=== PATIENT | female | born 1965 | race Caucasian/White ===

== ENCOUNTER → 2019-06-27 | Outpatient (CLI) | payer SELFPAY | PROVIDERS: Family Provider Family Medicine; Visit Provider Podiatrist Foot & Ankle Surgery | DX: S86.012A Strain of left Achilles tendon, initial encounter (principal); X58.XXXA Exposure to other specified factors, initial encounter; R60.9 Edema, unspecified; M67.874 Other specified disorders of tendon, left ankle and foot | CPT/HCPCS: 73721 ==

== ENCOUNTER 2019-07-05 16:37 | Outpatient (CLI) | payer BC, SELFPAY | END 2019-07-05 16:38 | disposition home or self-care (01) | LOC: SPT 16:37 | PROVIDERS: Family Provider Family Medicine; PCP Nurse Practitioner Family; Visit Provider Podiatrist Foot & Ankle Surgery | DX: S86.012D Strain of left Achilles tendon, subsequent encounter (principal); X58.XXXD Exposure to other specified factors, subsequent encounter | CPT/HCPCS: L4361 ==

== ENCOUNTER → 2020-05-01 13:52 | Outpatient (BNVA) | payer BC, SELFPAY | PROVIDERS: Family Provider Family Medicine; PCP Nurse Practitioner Family; Visit Provider Specialist | DX: M25.561 Pain in right knee (principal); M94.261 Chondromalacia, right knee; M12.861 Other specific arthropathies, not elsewhere classified, right knee | CPT/HCPCS: 73560; 73565 ==

== ENCOUNTER 2020-05-28 09:10 | Outpatient (CLI) | payer BC, SELFPAY ==
--- NOTE | 2020-05-28 09:22 | ECG_ITS ---
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 Interpretive Statements NAME OF STUDY: LEXISCAN SESTAMIBI STRESS TEST INDICATION: Chest Pain PROCEDURE: At the baseline, the blood pressure was 113/89 mmHg with a heart rate of 61 bpm. The electrocardiogram showed normal sinus rhythm. Interventricular conduction delay. ST-T wave changes in inferolateral leads. The Lexiscan was infused over a period of 20 seconds. A total of 0.4 milligrams of Lexiscan was infused. The stress phase was continued for a total of 5 minutes. Heart rate at the end of the stress phase was 73 bpm with a blood pressure of 122/67 mm. The EKG at the peak infusion revealed [sinus rhythm with no new ST-T wave changes. Sestamibi was injected 20 seconds after the Lexiscan infusion. Blood pressure at the end of the recovery phase was 122/77 mmHg with a heart rate of 81 beats per minute. CONCLUSION: 1. Equvivocal EKG response to LexiScan infusion given baseline ST-T wave changes. 2. No LexiScan induced chest pain or cardiac arrhythmia. 3. Normal blood pressure and heart rate response. 4. Sestamibi/sestamibi perfusion scan pending; see separate report. Electronically Signed On 05-29-2020 6:45:11 PRODUCTION POSTING CLERK by Karen Cutler M.D. [id number]
--- NOTE | 2020-05-28 09:23 | NMCV_ITS ---
NM víctor perf SPECT r/s* [id number] Katherine Dietrich Age: 55 Gender: F : 1965 Exam Date: 05/28/2020 10:24 Ordering Phys: Tete Chamorro MD ([email or web address]) Technologist: MONISHA Sotelo Exam Location: [facility] Indications: CHEST PAIN STRESS TEST [facility] IMAGE PROTOCOL Rest/Stress 1 Lexiscan Day Radiopharmaceutical Dose (mCi) Administration Site Administered by Rest: Tc-99m 11.0 IV MONISHA Page Sestamibi Stress:Tc-99m 33.0 IV MONISHA Page Sestamibi Rest: 28-May-2020 60 Discovery 630 Stress: 28-May-2020 30 Discovery 630 0.4mg Lexiscan. Images obtained in supine and prone position. SPECT RESULTS Technical Quality: Good Raw Data Analysis: Breast attenuation Image Corrections: No attenuation or motion correction applied Summed Stress Score: 3 Summed Rest Score: 2 Summed Difference Score: 3 PERFUSION FINDINGS Small area of slightly decreased tracer uptake was noted in the mid and apical inferior and mid inferolateral region. Subtle area of reversibility was noted in this region. FUNCTIONAL RESULTS (calculated via Gated SPECT) Stress Image LV EF (%): 77 Stress EDV (mL):126 TID: 0.92 Stress ESV (mL):29 FUNCTIONAL FINDINGS: Segmental wall motion analysis revealing no gross wall motion normalities. IMPRESSIONS 1. Myocardial perfusion imaging revealing a small area of slightly decreased tracer uptake in the inferior and inferolateral region, with a subtle area of reversibility suggestive of myocardial scarring with a very small area of krishan- infarction ischemia in the distribution of the right coronary artery. 2. Normal LV ejection fraction 77%. 3. LV wall motion analysis revealing no gross wall motion normalities. 4. Normal LV volume. No similar previous studies are available for comparison Dr Tete Chamorro MD FAC (Electronically Signed) Final Date: 29 May 2020 10:18 S
[2020-05-28 09:33] VITALS: BMI 42.5
[2020-05-28] MEDS: regadenoson 0.4 Mg/5 ml Syringe IVP (11:37)
[2020-05-28 11:58] VITALS: BP 122/77; PULSE 69
== END 2020-05-28 09:11 | disposition home or self-care (01) ==
PROVIDERS: PCP Nurse Practitioner Family; Visit Provider Internal Medicine Cardiovascular Disease
DX: R07.9 Chest pain, unspecified (principal)
CPT/HCPCS: 78452; 93017; A9500; J2785

== ENCOUNTER 2020-07-30 20:31 | Observation (INO) | payer OTHER, SELFPAY ==
[2020-07-30 20:43] VITALS: BP 129/74; PULSE 70; RESP 14; TEMP 36.6; O2SAT 96; BMI 43.2
--- NOTE | 2020-07-30 21:53 | ECG_ITS ---
[facility] Test Date: 2020-07-30 Pat Name: Katherine Dietrich Department: Room: Gender: Female Panel Gluer: NOA : 1965 Requested By: Saundra Almazan Order Number: [id number] Carmela MD: Tete Chamorro M.D. Measurements Intervals [place] Rate: 69 P: 42 [place]: 126 QRS: -31 QRSD: 130 T: 30 QT: 385 QTc: 415 Interpretive Statements SINUS RHYTHM MARKED LEFT AXIS DEVIATION [QRS AXIS < -30] LEFT VENTRICULAR HYPERTROPHY AND ST-T CHANGE [VOLTAGE CRITERIA PLUS ST/T ABNORMALITY] PROBABLE LATERAL MYOCARDIAL INFARCTION [35 ms Q WAVE IN I/aVL/V5/V6], PROBABLY OLD No previous ECG available for comparison Electronically Signed On 07-31-2020 19:59:39 CONTRACT ASSOCIATE MANAGER by Tete Chamorro M.D. [id number]
--- NOTE | 2020-07-30 21:53 | XR_ITS ---
WS: [id number] Portable AP upright chest, 07/30/2020 Clinical Data: cp Comparison: None. Findings: No nodules, masses or effusions are seen. The heart is normal. The pulmonary vascularity is not increased. No pneumonia or pneumothorax is seen. XR/XR chest 1V portable [id number] Impression: Negative chest.
--- NOTE | 2020-07-30 22:24 | ED_ITS ---
HPI - Chest Pain General: Chief Complaint: Chest Pain Stated Complaint: CP, DIZZINESS, NAUSEA, H/A Time Seen by Provider: 07/30/20 21:59 Source: patient Mode of arrival: ambulatory Limitations: no limitations History of Present Illness: HPI narrative: 55-year-old female states she has been having chest pain over the last 2 days a got worse today. States pressure type pain that goes down her left arm. Patient states that her pain is currently 2 out of 10. States it is much worse with any activity. She has had some nausea and sweating with it. Associated symptoms: Deny abdominal pain, dyspnea, fever(s), nausea or vomiting Review of Systems Const: Denies: fever(s), chills, body aches or change in appetite Eyes: Denies: blurry vision or eye discomfort ENMT: Denies: throat pain or dental pain Card: Reports: chest pain Resp: Denies: dyspnea GI: Denies: abdominal pain, nausea, vomiting or diarrhea : Denies: dysuria Musc: Denies: neck pain or back pain Skin/Breast: Denies: rash Neuro: Denies: headache(s) Psych: Denies: depression Rian/Lymph: Denies: easy bruising All/Imm: Denies: urticaria PFSH ED PFSH: Medical History (Updated 07/31/20 @ 00:12 by Saundra Almazan MD) Dyslipidemia GERD (gastroesophageal reflux disease) History of CVA (cerebrovascular accident) HTN (hypertension) Surgical History H/O: hysterectomy History of bladder surgery Hx of cholecystectomy Hx of heart artery stent Hx of tonsillectomy Hx of tubal ligation Family History Family/Other Heart disease Glaucoma Stroke Diabetes Denies family history of CAD (coronary artery disease) Clotting disorder Dementia Hyperlipidemia Psychiatric illness Chronic kidney disease (CKD) Suicide Anesthesia complication Bleeding disorder Family history of premature coronary artery disease Lung disease Cancer Hypertension Social History Smoking and tobacco status: never smoked Alcohol intake: never Current occupational status: unemployed Physical Exam Const: COMMON NORMALS: no acute distress, patient oriented x3 and healthy appearing HENMT: COMMON NORMALS: normocephalic and atraumatic HEAD & SCALP: normocephalic and atraumatic Eye: COMMON NORMALS: Equal, round and reactive pupils present and EOMs intact bilaterally PUPIL: Yes Equal, round and reactive pupils present Neck/C-Spine: COMMON NORMALS: full ROM and supple Chest: COMMONS NORMALS: normal inspection of the chest and normal palpation of entire chest wall Resp: COMMON NORMALS: normal respiratory effort, No retractions, No use of accessory muscles and clear to auscultation bilaterally AUSCULTATION: clear to auscultation bilaterally Cardio: COMMON NORMALS: regular rate, regular rhythm and No murmurs present (Cardio) RATE: regular rate RHYTHM: regular rhythm GI: COMMON NORMALS: Normal to inspection, nondistended, normoactive bowel sounds present, Soft to palpation, non-tender and no masses PALPATION: Yes Soft to palpation Extremity: COMMON NORMALS: normal to inspection and full ROM Neuro: COMMON NORMALS: patient oriented x3, moves all extremities and no focal motor deficits Psych: COMMON NORMALS: mental status grossly normal, Normal thought process present and cooperative THOUGHT PROCESS: Normal thought process present Skin: COMMON NORMALS: no rashes or lesions noted and no wounds GENERAL SKIN EXAM: no rashes or lesions noted Course Vital Signs: Vital signs: Vital Signs Temperature 97.9 F 07/30/20 20:43 Pulse Rate 66 07/30/20 23:58 Respiratory Rate 23 H 07/30/20 23:58 Blood Pressure 123/70 07/30/20 23:58 Pulse Oximetry 96 07/30/20 23:58 MDM - Chest Pain MDM Narrative: Medical decision making narrative: Patient presents here with chest pain. She has multiple risk factors. She has no signs of pulmonary embolism and x-ray here is normal. Her initial troponin normal as well. With all her risk factors I spoke to hospitalist will admit for observation. Patient's pain is been resolved here. Lab Data: Labs: Lab Results 07/30/20 07/30/20 07/30/20 Range/Units 22:37 22:37 22:37 WBC 7.9 (4.0-10.0) 10^3/ uL RBC 4.36 (4.1-5.3) 10^6/u L Hgb 12.5 (11.5-15.3) g/dL Hct 39.2 (37.0-47.0) % MCV 89.9 (81-99) fL MCH 28.7 (28.0-34.0) pg MCHC 31.9 (30.0-36.0) g/dL RDW 14.3 (12.1-15.1) % Plt Count 247 (130-400) 10^3/c mm MPV 9.9 (7.4-10.4) fL Neut % (Auto) 51.2 % Lymph % (Auto) 34.3 % Amite % (Auto) 9.2 % Eos % (Auto) 4.4 % Baso % (Auto) 0.6 % Neut # (Auto) 4.04 (1.8-7.7) 10^3/u L Lymph # (Auto) 2.7 (0.8-4.8) 10^3/u L Amite # (Auto) 0.7 (0.2-0.9) 10^3/u L Eos # (Auto) 0.4 (0.0-0.8) 10^3/u L Baso # (Auto) 0.1 (0.0-0.1) 10^3/u L Nucleated RBC % (a uto) 0 % Nucleated RBCs # 0.0 /100WBC Sodium 138 (136-145) mmol/L Potassium 4.4 (3.5-5.1) mmol/L Chloride 101 (98-107) mmol/L Carbon Dioxide 27 (22-29) mmol/L Anion Gap 14.4 (5-19) BUN 17 (6-20) mg/dL Creatinine 0.7 (0.5-0.9) mg/dL Glucose 110 (65-115) mg/dL Calculated Osmolal ity 288 (285-295) mOsm/k g Calcium 9.4 (8.5-10.5) mg/dL Total Bilirubin 0.2 (0.15-1.2) mg/dL AST 17 (0-32) U/L ALT 16 (0-33) U/L Alkaline Phosphata se 99 (35-105) IU/L Troponin T Baselin e 10 (0-10) ng/L NT-Pro-B Natriuret Pep 98 (0-125) pg/mL Total Protein 7.1 (6.6-8.7) g/dL Albumin 3.9 (3.5-5.2) g/dL Globulin 3.2 (1.3-4.6) g/dL Imaging Data^: CXR: Attestation: I personally reviewed and interpreted this imaging study as follows: My impression: no acute abnormality EKG Data^: EKG 1: Attestation: I personally reviewed and interpreted this EKG as follows: EKG interpretation date: 07/30/20 EKG interpretation time: 20:43 Interpretation: nsr hr [address] or t wave abnormalities qrs 130 qtc 405 Discharge Plan Discharge Patient Disposition: Admitted As Inpatient Clinical Impression: Chest pain Qualifiers: Chest pain type: unspecified Qualified Code(s): R07.9 - Chest pain, unspecified Condition: Stable Coding Level of Care Code ED 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
[2020-07-30 22:34] VITALS: BP 140/70; PULSE 66; RESP 15; O2SAT 95
[2020-07-30 22:46] LABS: Basophils # 0.1 10^3/uL (0.0-0.1); Basophils % 0.6 %; Eosinophils # 0.4 10^3/uL (0.0-0.8); Eosinophils % 4.4 %; Hematocrit 39.2 % (37.0-47.0); Hemoglobin 12.5 g/dL (11.5-15.3); Lymphocytes # 2.7 10^3/uL (0.8-4.8); Lymphocytes % 34.3 %; Mean Corpuscular HGB Conc 31.9 g/dL (30.0-36.0); Mean Corpuscular Hemoglobin 28.7 pg (28.0-34.0); Mean Corpuscular Volume 89.9 fL (81-99); Mean Platelet Volume 9.9 fL (7.4-10.4); Monocytes # 0.7 10^3/uL (0.2-0.9); Monocytes % 9.2 %; Neutrophils # 4.04 10^3/uL (1.8-7.7); Neutrophils % 51.2 %; Nucleated Red Blood Cells % 0 %; Platelet Count 247 10^3/cmm (130-400); Red Blood Count 4.36 10^6/uL (4.1-5.3); Red Cell Distribution Width 14.3 % (12.1-15.1); White Blood Count 7.9 10^3/uL (4.0-10.0)
[2020-07-30 23:15] LABS: Troponin(5th) Baseline 10 ng/L (0-10)
[2020-07-30] MEDS: aspirin 81 mg Chew Tablet 324 MG PO (23:48)
[2020-07-30 23:58] VITALS: BP 123/70; PULSE 66; RESP 23; O2SAT 96
[2020-07-31] VITALS (25 sets, daily range): BP systolic 104–149; BP diastolic 60–83; PULSE 63–81; RESP 13–24; TEMP 36.5–36.8; O2SAT 91–96
[2020-07-31 00:01] LABS: Alanine Aminotransferase 16 U/L (0-33); Albumin Level 3.9 g/dL (3.5-5.2); Alkaline Phosphatase 99 IU/L (35-105); Anion Gap 14.4 (5-19); Aspartate Amino Transferase 17 U/L (0-32); Blood Urea Nitrogen 17 mg/dL (6-20); Calcium 9.4 mg/dL (8.5-10.5); Carbon Dioxide 27 mmol/L (22-29); Chloride 101 mmol/L (98-107); Globulin 3.2 g/dL (1.3-4.6); Glomerular Filtration Rate 86.2 mL/min (90-130); Glucose 110 mg/dL (65-115); NT Pro B Type Natriuretic Pept 98 pg/mL (0-125); Osmolality Calculated 288 mOsm/kg (285-295); Potassium 4.4 mmol/L (3.5-5.1); Sodium 138 mmol/L (136-145); Total Bilirubin 0.2 mg/dL (0.15-1.2); Total Protein 7.1 g/dL (6.6-8.7)
--- NOTE | 2020-07-31 00:07 | P.HP_ITS ---
Providers/Chief Complaint Primary Care Provider: Unique Woods Chief Complaint: CP, DIZZINESS, NAUSEA, H/A History of Present Illness Katherine Dietrich is a 55 year old female with a history of coronary artery disease status post cardiac stenting 2016, currently on aspirin presents to the emergency department with a complaint of sudden onset of chest pain, which occurred at rest, maximum intensity 9/10, radiates to the back, left shoulder and left neck, associated with nausea, diaphoresis. She also reports feeling cold and clammy. Her initial troponin in the ED is negative. EKG did not show any significant ischemic changes. Patient was here in May 2020, had a nuclear stress test done which was equivocal. Her agriscience technology instructor Dr. Cutler recently titrated isosorbide dose. Patient is placed on observation for ACS rule out. Review of Systems Narrative: Except as documented, all other systems reviewed and negative. Medications/Allergies Home Medications Medication Instructions Recorded Confirmed Last Taken Type CAM WALKER #1 each 07/05/19 05/01/20 Unknown Rx aspirin 81 mg tablet,delayed 81 mg PO QDAY 07/25/19 05/01/20 Unknown History release cholecalciferol (vitamin D3) 100 4,000 unit PO QDAY 07/25/19 05/01/20 Unknown History mcg (4,000 unit) capsule escitalopram oxalate 5 mg tablet mg PO 07/25/19 05/01/20 Unknown History ferrous gluconate 325 mg (36 mg 324 mg PO QDAY 07/25/19 05/01/20 Unknown History iron) tablet gabapentin 300 mg capsule mg PO 07/25/19 05/01/20 Unknown History levothyroxine 125 mcg tablet mcg PO 07/25/19 05/01/20 Unknown History lisinopril 10 mg tablet mg PO 07/25/19 05/01/20 Unknown History loratadine 10 mg capsule 10 mg PO QDAY 07/25/19 05/01/20 Unknown History lovastatin 20 mg tablet 20 mg PO tab 07/25/19 05/01/20 Unknown History magnesium oxide 500 mg capsule 500 mg PO QDAY 07/25/19 05/01/20 Unknown History meclizine 25 mg tablet 25 mg PO QDAY 07/25/19 05/01/20 Unknown History metoprolol succinate 25 mg mg PO 07/25/19 05/01/20 Unknown History tablet,extended release 24 hr naproxen 500 mg tablet mg PO 07/25/19 05/01/20 Unknown History nitroglycerin 0.4 mg sublingual 0.4 mg SUBLINGUAL Q5M PRN 07/25/19 05/01/20 Unknown History tablet tramadol 50 mg tablet mg PO 07/25/19 05/01/20 Unknown History ezetimibe 10 mg tablet 10 mg PO DAILY #90 tab 11/24/19 05/01/20 Unknown Rx hydrochlorothiazide 12.5 mg tablet 12.5 mg PO DAILY #30 tab 04/16/20 05/01/20 Unknown Rx isosorbide mononitrate 30 mg 30 mg PO DAILY #90 tab 07/30/20 Unknown Rx tablet,extended release 24 hr Allergies Allergy/AdvReac Type Severity Reaction Status Date / Time atorvastatin Allergy Mild rash Verified 05/01/20 13:35 codeine Allergy Nausea/vomi Verified 05/01/20 13:35 tting PFSH Acute PFSH: Medical History (Updated 07/31/20 @ 01:35 by Monico Rodriguez MD) Dyslipidemia GERD (gastroesophageal reflux disease) History of CVA (cerebrovascular accident) HTN (hypertension) Surgical History H/O: hysterectomy History of bladder surgery Hx of cholecystectomy Hx of heart artery stent Hx of tonsillectomy Hx of tubal ligation Family History Family/Other Heart disease Glaucoma Stroke Diabetes Denies family history of CAD (coronary artery disease) Clotting disorder Dementia Hyperlipidemia Psychiatric illness Chronic kidney disease (CKD) Suicide Anesthesia complication Bleeding disorder Family history of premature coronary artery disease Lung disease Cancer Hypertension Social History Smoking and tobacco status: never smoked Alcohol intake: never Current occupational status: unemployed Vitals/I&O/Wt Last Vital Signs Temp 97.9 F 07/30/20 20:43 Pulse 66 07/30/20 23:58 Resp 23 H 07/30/20 23:58 BP 123/70 07/30/20 23:58 Pulse Ox 96 07/30/20 23:58 Weight last 48 hrs Weight 117.934 kg Physical Exam Const: COMMON NORMALS: no acute distress and patient oriented x3 NUTRITIONAL APPEARANCE: obese HENMT: COMMON NORMALS: normocephalic and moist oral mucous membranes Eye: COMMON NORMALS: Equal, round and reactive pupils present and conjunctivae normal Neck/C-Spine: COMMON NORMALS: supple and no JVD Lymph: LYMPHATIC: no lymphadenopathy noted Chest: COMMONS NORMALS: normal inspection of the chest and normal palpation of entire chest wall Resp: COMMON NORMALS: normal respiratory effort, No use of accessory muscles and clear to auscultation bilaterally Cardio: COMMON NORMALS: no JVD, regular rate, regular rhythm, S1 normal heart sound present and S2 normal heart sound present GI: COMMON NORMALS: Normal to inspection, nondistended, normoactive bowel sounds present, Soft to palpation, non-tender, No hepatosplenomegaly present and no masses : COMMON NORMALS: Yes no CVA tenderness Back/Pelvis: COMMON NORMALS: thoraco-lumbar ROM normal Extremity: COMMON NORMALS: full ROM, capillary refill normal and no clubbing, cyanosis or edema Neuro: COMMON NORMALS: patient oriented x3, CN's II-XII intact bilaterally and no focal motor deficits Psych: COMMON NORMALS: mental status grossly normal, Normal thought process present and cooperative Skin: COMMON NORMALS: no rashes or lesions noted, turgor normal and no jaundice Data : 07/30/20 22:37 07/30/20 22:37 A&P Assessment and plan (1) Chest pain: Status: Acute Qualifiers: Chest pain type: unspecified Qualified Code(s): R07.9 - Chest pain, unspecified (2) Coronary artery disease: Status: Acute (3) Dyslipidemia: Status: Acute (4) HTN (hypertension): Status: Acute Qualifiers: Hypertension type: essential hypertension Qualified Code(s): I10 - Essential (primary) hypertension (5) History of CVA (cerebrovascular accident): Status: Acute (6) Morbid obesity with BMI of 40.0-44.9, adult: Status: Acute Additional A&P Information Place patient under observation. Continue to trend troponin Patient had borderline abnormal stress test 2 months ago. We will start aspirin, metoprolol and statin. NTG as needed for chest pain. Continue isosorbide. Continue home antihypertensives. Check lipid profile Cardiology consult to Dr. Cutler. Attestations Medical Necessity Statement*: Patient with significant CAD risk factors presenting to the ED with a complaint of chest pain. She needs to be h ospitalized for ACS rule out. She is expected to spend less than 2 midnights. Coding Level of Care Code Acute [facility] for g Fwd Exam Comprehensive Diagnoses Chest pain R07.9 Chest pain type: unspecified Coronary artery disease I25.10 Dyslipidemia E78.5 HTN (hypertension) I10 Hypertension type: essential hypertension History of CVA (cerebrovascular accident) Z86.73 Morbid obesity with BMI of 40.0-44.9, adult E66.01; Z68.41
[2020-07-31 01:12] LABS: Troponin 5 2HR 8.74 ng/L (0-10)
[2020-07-31 01:22] LABS: Troponin 5 2HR Delta -1.26 ABS# (0-10)
--- NOTE | 2020-07-31 02:14 | ECG_ITS ---
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 Measurements Intervals [place] Rate: 65 P: 48 [place]: 141 QRS: -32 QRSD: 128 T: 53 QT: 380 QTc: 397 Interpretive Statements SINUS RHYTHM LEFT AXIS DEVIATION [QRS AXIS < -30] LEFT VENTRICULAR HYPERTROPHY AND ST-T CHANGE [VOLTAGE CRITERIA PLUS ST/T ABNORMALITY] PROBABLE LATERAL MYOCARDIAL INFARCTION , PROBABLY OLD [35 ms Q WAVE IN I/aVL/V5/V6] Compared to ECG 07/30/2020 20:43:33 No significant changes Electronically Signed On 07-31-2020 20:16:51 PAPER REWINDER OPERATOR by Tete Chamorro M.D. [id number]
[2020-07-31] MEDS: aspirin 81 mg EC Tablet PO ×2 (03:10→07:55)
[2020-07-31] MEDS: enoxaparin 40 mg/0.4 mL Syringe SUBCUT (03:10)
[2020-07-31] MEDS: cholecalciferol (vitamin D3) 1,000 unit Tablet 4000 UNIT PO ×2 (03:10→07:56)
--- NOTE | 2020-07-31 05:14 | ECG_ITS ---
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 Measurements Intervals [place] Rate: 62 P: 31 [place]: 147 QRS: 30 QRSD: 135 T: 30 QT: 427 QTc: 436 Interpretive Statements SINUS RHYTHM INTRAVENTRICULAR CONDUCTION DELAY [130+ ms QRS DURATION] Compared to ECG 07/31/2020 01:34:13 Intraventricular conduction delay now present Nonspecific T wave changes Left-axis deviation no longer present Left ventricular hypertrophy no longer present ST (T wave) deviation no longer present Myocardial infarct finding no longer present Electronically Signed On 07-31-2020 20:18:11 IRRIGATION FLUME LAYER by Tete Chamorro M.D. [id number]
[2020-07-31 06:44] LABS: Troponin 5 6HR 10.24 ng/L (0-10); Troponin 5 6HR Delta 0.24 ng/L (0-12)
[2020-07-31 07:12] LABS: Chol HDL Ratio 3.16 mg/dL (0.0-4.40); Cholesterol 139 mg/dL (0-200); HDL Cholesterol 44 mg/dL (60-100); LDL Cholesterol Calculated 62 mg/dL (50-129); LDL HDL Ratio 1.41 RATIO (0.00-3.22); Triglycerides 164 mg/dL (0-150)
[2020-07-31] MEDS: isosorbide mononitrate ER 30 mg Tablet PO (07:56)
[2020-07-31] MEDS: pantoprazole DR 40 mg Tablet PO (07:56)
--- NOTE | 2020-07-31 09:03 | P.CONIM_ITS ---
Providers/Reason For Consult Consulting Physican/Specialty*: Dr. 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 She was previously on aspirin and Effient and stopped Effient sometime back. She recently moved to the area from [place] and is well known to me as outpatient. Patient had recent stress test due to worsening chest pain and shortness of breath. Myocardial perfusion imaging revealed a small area of slightly decreased tracer uptake in the inferior and inferolateral region, with a subtle area of reversibility. I started her on Isosorbide 15 mg daily with some relief of symptoms. She called me yesterday saying her chest pains have worsened again and we decided to increase imdur to 30 mg daily until her follow up but she ended up in hospital last night as her pain was in her chest and between her shoulder blades more intense and lasted longer. She did not use any NTG. No URI/UTI like symptoms. Review of Systems Const: Denies: fever(s), chills, body aches or change in appetite Eyes: Denies: blurry vision or eye discomfort ENMT: Denies: throat pain or dental pain Card: Reports: chest pain, dyspnea on exertion and orthopnea; Denies: irregular heart rhythm or lightheadedness Resp: Denies: dyspnea GI: Denies: abdominal pain, nausea, vomiting or diarrhea : Denies: dysuria Musc: Denies: neck pain, back pain or extremity swelling Skin/Breast: Denies: rash Neuro: Denies: headache(s) Psych: Denies: depression Endo: Denies: tired all the time Rian/Lymph: Denies: easy bruising All/Imm: Denies: urticaria Meds/Allergies Home Medications and Allergies Home Medications Medication Instructions Recorded Confirmed Last Taken Type CAM WALKER #1 each 07/05/19 05/01/20 Unknown Rx aspirin 81 mg tablet,delayed 81 mg PO QDAY 07/25/19 05/01/20 Unknown History release cholecalciferol (vitamin D3) 100 4,000 unit PO QDAY 07/25/19 05/01/20 Unknown History mcg (4,000 unit) capsule escitalopram oxalate 5 mg tablet mg PO 07/25/19 05/01/20 Unknown History ferrous gluconate 325 mg (36 mg 324 mg PO QDAY 07/25/19 05/01/20 Unknown History iron) tablet gabapentin 300 mg capsule mg PO 07/25/19 05/01/20 Unknown History levothyroxine 125 mcg tablet mcg PO 07/25/19 05/01/20 Unknown History lisinopril 10 mg tablet mg PO 07/25/19 05/01/20 Unknown History loratadine 10 mg capsule 10 mg PO QDAY 07/25/19 05/01/20 Unknown History lovastatin 20 mg tablet 20 mg PO tab 07/25/19 05/01/20 Unknown History magnesium oxide 500 mg capsule 500 mg PO QDAY 07/25/19 05/01/20 Unknown History meclizine 25 mg tablet 25 mg PO QDAY 07/25/19 05/01/20 Unknown History metoprolol succinate 25 mg mg PO 07/25/19 05/01/20 Unknown History tablet,extended release 24 hr naproxen 500 mg tablet mg PO 07/25/19 05/01/20 Unknown History nitroglycerin 0.4 mg sublingual 0.4 mg SUBLINGUAL Q5M PRN 07/25/19 05/01/20 Unknown History tablet tramadol 50 mg tablet mg PO 07/25/19 05/01/20 Unknown History ezetimibe 10 mg tablet 10 mg PO DAILY #90 tab 11/24/19 05/01/20 Unknown Rx hydrochlorothiazide 12.5 mg tablet 12.5 mg PO DAILY #30 tab 04/16/20 05/01/20 Unknown Rx isosorbide mononitrate 30 mg 30 mg PO DAILY #90 tab 07/30/20 Unknown Rx tablet,extended release 24 hr baclofen 5 mg PO DAILY@2100 07/31/20 07/31/20 Unknown History omeprazole 20 mg PO DAILY@08 07/31/20 07/31/20 Unknown History potassium See Rx Instructions .ROUTE .COMPLEX 07/31/20 07/31/20 Unknown History Allergies Allergy/AdvReac Type Severity Reaction Status Date / Time atorvastatin Allergy Mild rash Verified 05/01/20 13:35 codeine Allergy Nausea/vomi Verified 05/01/20 13:35 tting Current Medications Current Medications Generic Name Dose Route Start Last Admin Trade Name Anh PRN Reason Stop Dose Admin Aspirin 81 mg 07/31/20 02:14 07/31/20 07:55 Aspirin 81 Mg Ec Tablet PO 81 mg DAILY JUANCARLOS Administration Enoxaparin Sodium 40 mg 07/31/20 02:14 07/31/20 03:10 Enoxaparin 40 Mg/0.4 Ml Syringe SUBCUT 40 mg Q24H JUANCARLOS Administration Isosorbide Mononitrate 30 mg 07/31/20 09:00 07/31/20 07:56 Isosorbide Mononitrate Er 30 Mg Tablet PO 30 mg DAILY JUANCARLOS Administration Pantoprazole Sodium 40 mg 07/31/20 09:00 07/31/20 07:[address] 40 Mg Tablet PO 40 mg DAILY JUANCARLOS Administration Vitamin D 4,000 unit 07/31/20 02:14 07/31/20 07:56 Cholecalciferol (Vitamin D3) 1,000 Unit Tablet PO 4,000 unit DAILY JUANCAROLS Administration PFSH Acute PFSH: Medical History Dyslipidemia GERD (gastroesophageal reflux disease) History of CVA (cerebrovascular accident) HTN (hypertension) Surgical History H/O: hysterectomy History of bladder surgery Hx of cholecystectomy Hx of heart artery stent Hx of tonsillectomy Hx of tubal ligation Family History Family/Other Heart disease Glaucoma Stroke Diabetes Denies family history of CAD (coronary artery disease) Clotting disorder Dementia Hyperlipidemia Psychiatric illness Chronic kidney disease (CKD) Suicide Anesthesia complication Bleeding disorder Family history of premature coronary artery disease Lung disease Cancer Hypertension Social History Smoking and tobacco status: never smoked Alcohol intake: never Current occupational status: unemployed Vitals/I&O/Wt Last Vital Signs Temp 98.0 F 07/31/20 08:00 Pulse 63 02/03/21 08:00 Resp 20 H 07/31/20 08:00 BP 104/64 07/31/20 08:00 Pulse Ox 95 07/31/20 08:00 Weight last 48 hrs Weight 260 lb Physical Exam Narrative: EXAM NARRATIVE: Gen: obese woman lying in bed, NAD HEENT: PEERL, No pallor or icterus, No lymphadenopathy CVS: S1, S2, No murnur, rub or gallop appreciated. RS: CTAB/L, decreased BS habitus related, No wheezes or rales FREIGHT BROKER AGENT: AAOx 3, No FND Ext: No edema, cyanosis or clubbing. warm extremeties. Skin: No rashes or wounds noted. Psych: Normal mood and appropriate affect Data Other Data: Attestation for Other Data: I personally reviewed and interpreted the following: Other data: #EKG old with sinus rhythm with left axis deviation and intraventricular conduction delay and nonspecific ST-T wave changes. # LHC (05/2017): Normal LM, RCA, 95% mid LAD, 20% proximal LAD and 10% Px lesion in RCA. LVEF=52%. # TTE (10/2013): Normal LV function. LVEF=60-65%, Mild MR, trcae TR. No RWMA. Grade 1 DD. # Event monitor (02/2017): NSR. 4 ventricular couplets at 100 bpm. Lexiscan sestamibi stress test 07/2019 1. Myocardial perfusion imaging revealing a small area of slightly decreased tracer uptake in the inferior and inferolateral region, with a subtle area of reversibility suggestive of myocardial scarring with a very small area of krishan- infarction ischemia in the distribution of the right coronary artery. 2. Normal LV ejection fraction 77%. 3. LV wall motion analysis revealing no gross wall motion normalities. 4. Normal LV volume. No similar previous studies are available for comparison A&P Assessment and plan (1) Chest pain: Mildly abnormal stress test with chest pains inspite of maximal tolerated antianginal medical therapy. -I will plan for [facility] with Dr. Yadav. -Risks and benefits were discussed with the patients. Alternate management options were discussed with the patient as well. Possible complications were reviewed with the patient as well. Plan is to proceed for the procedure at the earliest. -continue current medications and changes based on cath result. _I appreciate Dr. Yadav's help in patient management. Status: Acute Qualifiers: Chest pain type: unspecified Qualified Code(s): R07.9 - Chest pain, unspecified (2) Coronary artery disease: Status: Acute (3) HTN (hypertension): Status: Acute Qualifiers: Hypertension type: essential hypertension Qualified Code(s): I10 - Essential (primary) hypertension (4) Dyslipidemia: Status: Acute (5) History of CVA (cerebrovascular accident): Status: Acute (6) Morbid obesity with BMI of 40.0-44.9, adult: Status: Acute Consult Attestations Medical Necessity Statement: Needs hospital stay for chest pains Time Spent in Patient Care: Greater than 35 minutes (>than 50% of time spent in counselling and/or direct pt care on unit) . Coding Level of Care Code Acute Concrete Worker for Celeste Rena Diagnoses Chest pain R07.9 Chest pain type: unspecified Coronary artery disease I25.10 HTN (hypertension) I10 Hypertension type: essential hypertension Dyslipidemia E78.5 History of CVA (cerebrovascular accident) Z86.73 Morbid obesity with BMI of 40.0-44.9, adult E66.01; Z68.41
--- NOTE | 2020-07-31 09:31 | PC.CHAP ---
Pastoral Care Encounter/Spiritual Assessment Type of Contact [] Declined bracelet and brooch maker visit [] Patient/Family/Request visit [] Outpatient visit [] Follow-up visit [] Physician referral [] Code/Alert [x] Routine visit [] Staff referral [] Actively dying [x] Patient sleeping [] Family support [] [] Out of room [] Palliative care [] [] Receiving care in room [] Pre-surgical visit [] Trauma [] Long length of stay [] ICU visit [] Other: Relational/Emotional Strength [] Patient feels connected with others/family/visitors/staff [] Distress [] Loneliness/isolation [] Abandonment Spirituality of Patient [] Person of Gabriela [] Attends Confucianist of their Gabriela [] Believes in Prayer [] Reads Bible or Mandaeism materials [] There are Spiritual issues to be addressed Music Mixer Interventions [] Prayer [] Active listening [] Non-anxious presence [] Spiritual/emotional support [] Crisis/trauma care [] Spiritual counseling [] Bereavement support [] Provided bereavement packet [] Provided Bible/devotional materials [] Provided toy/stuffed animal, coloring book to patient or family member [] Provided Communion [] Anointing/[place] [] Salvation [] Completed spiritual assessment [] Other: Impact on Illness or Injury [] Angry [] Fearful [] Anxious [] Often cries [] Exhaustion [] Unable to work [] Unable to attend latter day [] Unable to walk/stand [] Unable to read [] Unable to drive [] Unable to eat/drink [] Unable to sleep [] Unable to be with family [] Patient intubated [] Other: Summary Time spent with patient
--- NOTE | 2020-07-31 09:50 | XACV_ITS ---
Exam Room: [facility] Ht: 165 cm Wt: 118 kg BSA: 2.39 m2 Gender: Female : 1965 Any Known Allergies: Other Exam Priority: Routine Procedure(s): Procedure Description: Diagnostic procedure Procedure Description: Left Heart Catheterization Procedure Description: Left ventriculography Procedure Description: Coronary Angiography Diagnostic Cath Status: Urgent Diagnostic Findings * No significant disease noted in the Left Main, LAD, Circumflex, or RCA coronary arteries. Left main artery: Has mild luminal irregularities. Left circumflex artery: Small vessel. No significant stenosis is seen. Ramus intermedius artery: Patent with no significant stenosis. LAD: It is a small sized vessel. It gives rise to a large diagonal branch. Mid to distal LAD has a patent stent. No significant stenosis is seen in diagonal or LAD. RCA: It is a large dominant vessel. Mild luminal irregularities are seen without any significant stenosis.. * Coronary angiography shows right dominance. Conclusions 1. Chest pain likely secondary to microvascular dysfunction. 2. No significant disease noted in the Left Main, LAD, Circumflex, or RCA coronary arteries. 3. Normal left ventricular systolic function. Ejection fraction of 55%. Recommendations * Consider adding Ranexa if patient continues having chest pain symptoms. Diagnostic RX Recommendation: medical therapy and/or counseling Ventriculography Ejection Fraction: 55.0 % Pressures Phase:Rest AO : 117 / 78 ( 95 ) @ 4:54:00 AM 162 / 74 ( 99 ) @ 4:59:00 AM 103 / 23 ( 33 ) @ 5:04:00 AM LV : 119 / -14 / @ 5:03:00 AM 110 / -11 / @ 5:04:00 AM Clinical Evaluation EBL: 5mL-10mL Procedural Details Procedure Consent Obtained. Pre-Procedure Time Out. Identified patient by full name and date of as verbalized by the patient/guarantor. Does the consent match the physician's order: Yes. Accurate & Complete Informed Consent: Yes. Inpatient/Outpatient History & Physical on Chart: Yes. If H&P is completed, is and addenduem needed: N/A; If yes, is the addendum complete: N/A. Visualize and Verify Site with Patient/Guarantor: N/A. Relevant Radiology Images available: Yes. Pre-op teaching completed and patient verbalized understanding. The risks, benefits, and alternatives of sedation and/or procedure were discussed by physician. The patient agrees to continue. Procedure started. Correct patient, site and procedure confirmed by cath team. PERRLA. Strong, equal hand line service attendant bilaterally. Lungs clear x 5 lobes. IV Fluids: 0.9% NaCl at KVO. 0 mL infused prior to quality assurance qa lab analyst. Oxygen started at 2liters/min via nasal canula. right groin was prepped with chloroprep then draped in the usual sterile fashion. right radial was prepped with chloroprep then draped in the usual sterile fashion. Physician notified. Baseline sample Acquired. HR: 69 BPM. Equipment: 5F - Radial. Cardiac Cath Pack. ACIST Manifold Kit Model BT 2000. Heparinized Saline (2 units/mL), 1000 mL bag. Physician arrived. Physician scrubbed in. Immediate Pre-Procedure Time Out. Correct Patient: Yes; Correct Procedure: Yes; Correct Site: Yes; Correct Patient Position: Yes; Correct Supplies: Yes; Dried Flammable Prep: Yes; Blood Products Available: No;. Lidocaine 1% infiltrated to the right radial. Arterial access obtained. A 5 albanian TIG catheter in over wire. Wire and catheter out. Hand injection performed. A TR Band was successful obtaining hemostatsis at the Right Radial artery insertion site. TR band placed. Hemostasis obtained. Lidocaine 1% infiltrated to the right groin. Arterial access obtained with micropuncture set. wire and needle out. Arterial access obtained with micropuncture set. A 5 albanian JL4 catheter in over wire. Multiple views taken of left coronary artery. Catheter out. A 5 albanian JR4 catheter in over wire. Multiple views taken of right coronary artery. Catheter out. A 5 albanian Angled Pig catheter in over wire. EDP Sample taken: LV 119/-15,6; HR: 75 BPM; SpO2: 95%. LV gram performed in PEPE @ 10 mL/second for a total of 30 mL. EDP Sample taken: LV 110/-12,7; HR: 75 BPM; SpO2: 95%. Pullback taken: LV Off; AO Off; Mean: , Peak to Peak: , SEP: ; HR: 75 BPM; SpO2: 96%. A Angio-Seal VIP ([place] [employer]) was successful obtaining hemostatsis at the Right Femoral artery insertion site. PERRLA. Strong, equal hand line service attendant bilaterally. No VTE prophylaxis required. Medication's Wasted: Lidocaine 1% = 4 mL. Medication's Wasted: Heparin = 1000 units. Medication's Wasted: Nitro = 49.8 mg. Medication's Wasted: Other = versed 1 mg. Total IV fluids: 75 mL. Fluoro: 3:00. Contrast type used: Omnipaque 300 mgI/mL, 500 mL bottle. [id number]. Post-op diagnosis: non CAD. Complications: none. Estimated blood loss: 5mL-10mL. Procedure completed. Patient transferred by bed to 1st floor. [facility] Clinical Fraility Score: 2: Well. Bilingual Instructor Indications: New Onset Angina. Chest Pain Symptom Assessment: Typical Angina Symptoms. Cardiovascular Instability: No. Angio-seal placed without complications. No signs or symptoms of hematoma noted. Sterile dressing applied per usual sterile fashion. Vital chart was stopped. Access Site Site: Right Radial artery Sheath Size: 6 Fr Hemostasis Method: TR Band Hemostasis Success: Successful Site: Right Femoral artery Sheath Size: 6 Fr Hemostasis Method: Angio-Seal VIP ([employer]) Hemostasis Success: Successful Procedure Medications Start: 10:30 AM Stop: 10:30 AM Medication: Versed Amount: 1 mg Route: I.V. Start: 10:30 AM Stop: 10:30 AM Medication: Fentanyl Amount: 50 mcg Route: I.V. Start: 10:32 AM Stop: 10:32 AM Medication: Versed Amount: 1 mg Route: I.V. Start: 10:36 AM Stop: 10:36 AM Medication: Fentanyl Amount: 50 mcg Route: I.V. Start: 10:37 AM Stop: 10:37 AM Medication: Nitrogylcerin Amount: 200 mcg Route: I.A. Start: 10:40 AM Stop: 10:40 AM Medication: Versed Amount: 1 mg Route: I.V. Start: 10:45 AM Stop: 10:45 AM Medication: Versed Amount: 1 mg Route: I.V. Start: 10:49 AM Stop: 10:49 AM Medication: Fentanyl Amount: 50 mcg Route: I.V. Start: 10:53 AM Stop: 10:53 AM Medication: Versed Amount: 1 mg Route: I.V. Start: 11:02 AM Stop: 11:02 AM Medication: Fentanyl Amount: 50 mcg Route: I.V. I, the attending physician, have reviewed and verified all procedure medications. Yes, all medications given per verbal order History/Risk Factors Hypertension: Yes Dyslipidemia: Yes Report Signatures Finalized by Eliud Yadav MD on 08/09/2020 11:43 AM
--- NOTE | 2020-07-31 10:14 | PC.NURSE ---
pt left floor to laboratory specialist
--- NOTE | 2020-07-31 10:24 | W.PM.OPSUD ---
Surgery/Procedure H&P Update DATE OF PROCEDURE: July 31, 2020 DATE H&P PERFORMED: 07/31/20 H&P UPDATE INFORMATION: I have reviewed H&P completed within last 30 days, I have examined patient prior to procedure and No changes to prior documentation PREOP DIAGNOSIS: Unstable angina PRIMARY INDICATION FOR PROCEDURE: Unstable angina PATIENT REASSESSED PRIOR TO SEDATION, WITH NO CHANGE NOTED: Yes PHYSICAL EXAM: alert, oriented x 3 and clear to auscultation bilaterally AIRWAY EVAL/ANESTHESIA PLAN: ASA II, Risks, benefits & alternatives of sedation and/or procedure discussed and Patient agrees to continue as planned
--- NOTE | 2020-07-31 10:52 | P.PN_ITS ---
Subjective Subjective: Interval history: Patient was seen and examined this morning.She was admitted last not with for chest pain as well between her shoulder blades which was more intense and longer lasting as compared to her past episodes. This morning she was still complaining of chest pain. Her Vitals and labs have been reviewed. Medications: Reviewed: Yes Vitals/I&O/Wt Last Vital Signs Temp 98.0 F 07/31/20 08:00 Pulse 63 07/31/20 08:00 Resp 20 H 07/31/20 08:00 BP 104/64 07/31/20 08:00 Pulse Ox 95 07/31/20 08:00 Weight last 48 hrs Weight 117.934 kg Physical Exam Const: COMMON NORMALS: patient oriented x3 HENMT: COMMON NORMALS: normocephalic and atraumatic HEAD & SCALP: n ormocephalic and atraumatic Chest: CHEST: Yes Symmetrical chest wall rise Resp: COMMON NORMALS: normal respiratory effort, No retractions, No use of accessory muscles and clear to auscultation bilaterally EFFORT & INSPECTION: Yes symmetric chest movement AUSCULTATION: clear to auscultation bilaterally Cardio: COMMON NORMALS: regular rate, regular rhythm, S1 normal heart sound present, S2 normal heart sound present, No gallops present (Cardio), No murmurs present (Cardio), No rub (Cardio) and Peripheral pulses 2+ throughout RATE: regular rate RHYTHM: regular rhythm HEART SOUNDS: S1 normal heart sound present and S2 normal heart sound present PERIPHERAL PULSES: Peripheral pulses 2+ throughout GI: COMMON NORMALS: Normal to inspection, nondistended, normoactive bowel sounds present, Soft to palpation, non-tender, No hepatosplenomegaly present and no masses AUSCULTATION: Yes normoactive bowel sounds PALPATION: Yes Soft to palpation and Yes No hepatosplenomegaly present RECTAL EXAM: deferred Extremity: COMMON NORMALS: no clubbing, cyanosis or edema and no pedal edema Neuro: COMMON NORMALS: patient oriented x3 Data : 07/30/20 22:37 07/30/20 22:37 A&P Assessment and plan (1) Chest pain: Patient came in with typical Cardiac chest Pain. Troponin:Flat # LHC (05/2017): Normal LM, RCA, 95% mid LAD, 20% proximal LAD and 10% Px lesion in RCA. LVEF=52%. # TTE (10/2013): Normal LV function. LVEF=60-65%, Mild MR, trcae TR. No RWMA. Grade 1 DD. # Event monitor (02/2017): NSR. 4 ventricular couplets at 100 bpm. Lexiscan sestamibi stress test 07/2019 1. Myocardial perfusion imaging revealing a small area of slightly decreased tracer uptake in the inferior and inferolateral region, with a subtle area of reversibility suggestive of myocardial scarring with a very small area of krishan- infarction ischemia in the distribution of the right coronary artery. 2. Normal LV ejection fraction 77%. 3. LV wall motion analysis revealing no gross wall motion normalities. 4. Normal LV volume. Plan : S/P Cardiac Cath: Aspirin 81 mg po daily IMDUR 30Mg PO Daily Lisinopril 10 mg po daily Metoprolol ER 25 MG PO DAILY Lovastatin 20 mg po daily Ezetimibe 10 mg po daily Nitro SL as needed Status: Acute Qualifiers: Chest pain type: unspecified Qualified Code(s): R07.9 - Chest pain, unspecified (2) History of CVA (cerebrovascular accident): CVA with residual mild right sided weakness in 2015 Status: Acute (3) Coronary artery disease: coronary artery disease with stent to mid LAD and Resolute KADE 2.25 x 15 mm in May 2017 Status: Acute (4) Hypothyroidism: Status: Acute (5) HTN (hypertension): Status: Acute Qualifiers: Hypertension type: essential hypertension Qualified Code(s): I10 - Essential (primary) hypertension (6) Morbid obesity with BMI of 40.0-44.9, adult: Status: Acute Additional A&P Information DVT PPX: Lovenox 40 mg sc daily Code status : Full code Disposition :Home Attestations Medical Necessity Statement*: Patient needs to be in hospital for the work up and management typical cardiac chest pain Coding Level of Care Code Acute Costume Design Teacher for Chg Fwd Exam Detailed Diagnoses Chest pain R07.9 Chest pain type: unspecified History of CVA (cerebrovascular accident) Z86.73 Coronary artery disease I25.10 Hypothyroidism E03.9 HTN (hypertension) I10 Hypertension type: essential hypertension Morbid obesity with BMI of 40.0-44.9, adult E66.01; Z68.41
--- NOTE | 2020-07-31 11:31 | PC.NURSE ---
patient to room 103 after left heart cath patient alert oriented and in stable condition TR band in place no hematoma noted groin site dry and intact no hematoma noted explained to patient restrictions patient verbalized understanding
[2020-07-31] MEDS: lisinopril 10 mg Tablet PO (13:57)
[2020-07-31] MEDS: TRAMadol 50 mg Tablet PO ×2 (14:00→21:23)
[2020-07-31] MEDS: metoprolol succinate ER (24 HR) 25 mg Tablet PO (21:15)
[2020-07-31] MEDS: gabapentin 300 mg Capsule 600 MG PO (21:15)
[2020-08-01] VITALS: BP 103/55; PULSE 71; RESP 18; TEMP 36.6; O2SAT 93
[2020-08-01 04:00] VITALS: BP 115/57; PULSE 59; RESP 10; TEMP 36.8; O2SAT 94
[2020-08-01] MEDS: levothyroxine 125 mcg Tablet PO (04:25)
--- NOTE | 2020-08-01 05:36 | PC.NURSE ---
NURSE NOTE: SHIFT SUMMARY: PT ALERT AND ORIENTED X4; MOVES ALL EXTREMITIES AND FOLLOWS COMMANDS. C/O PAIN X1 TIME THIS SHIFT. PAIN MEDICATION GIVEN ORDERED AND WAS EFFECTIVE PER PT. ALL VS AND ASSESSMENTS CHARTED. CURRENTLY RESTING WITH EYES CLOSED. NO DISTRESS NOTED.
[2020-08-01 05:41] LABS: Basophils % 0.4 %; Eosinophils # 0.3 10^3/uL (0.0-0.8); Eosinophils % 3.6 %; Hematocrit 38.4 % (37.0-47.0); Hemoglobin 11.9 g/dL (11.5-15.3); Lymphocytes # 2.5 10^3/uL (0.8-4.8); Lymphocytes % 35.8 %; Mean Corpuscular Hemoglobin 28.1 pg (28.0-34.0); Mean Corpuscular Volume 90.8 fL (81-99); Mean Platelet Volume 10.3 fL (7.4-10.4); Monocytes # 0.8 10^3/uL (0.2-0.9); Monocytes % 11.5 %; Neutrophils # 3.32 10^3/uL (1.8-7.7); Neutrophils % 48.3 %; Nucleated Red Blood Cells % 0 %; Platelet Count 226 10^3/cmm (130-400); Red Blood Count 4.23 10^6/uL (4.1-5.3); Red Cell Distribution Width 14.6 % (12.1-15.1); White Blood Count 6.9 10^3/uL (4.0-10.0)
[2020-08-01 06:00] VITALS: PULSE 61
[2020-08-01 06:00] LABS: Anion Gap 10.1 (5-19); Blood Urea Nitrogen 15 mg/dL (6-20); Calcium 9.3 mg/dL (8.5-10.5); Carbon Dioxide 29 mmol/L (22-29); Chloride 102 mmol/L (98-107); Glomerular Filtration Rate 73.9 mL/min (90-130); Glucose 96 mg/dL (65-115); Magnesium 1.9 mg/dL (1.7-2.3); Osmolality Calculated 285 mOsm/kg (285-295); Phosphorus 4.2 mg/dL (2.5-4.5); Potassium 4.1 mmol/L (3.5-5.1); Sodium 137 mmol/L (136-145)
[2020-08-01 06:13] LABS: INR 1.03 (0.8-1.2)
[2020-08-01 06:17] LABS: Cholesterol 154 mg/dL (0-200); HDL Cholesterol 44 mg/dL (60-100); LDL Cholesterol Calculated 74 mg/dL (50-129); LDL HDL Ratio 1.68 RATIO (0.00-3.22); Triglycerides 178 mg/dL (0-150)
[2020-08-01 08:00] VITALS: BP 140/86; PULSE 64; RESP 12
[2020-08-01] MEDS: gabapentin 300 mg Capsule PO (08:45)
[2020-08-01] MEDS: escitalopram 10 mg Tablet 5 MG PO (08:45)
[2020-08-01] MEDS: aspirin 81 mg EC Tablet PO (08:46)
[2020-08-01] MEDS: lisinopril 5 mg Tablet PO (08:46)
[2020-08-01] MEDS: isosorbide mononitrate ER 30 mg Tablet PO (08:46)
[2020-08-01] MEDS: ezetimibe 10 mg Tablet PO (08:46)
[2020-08-01] MEDS: pantoprazole DR 40 mg Tablet PO (08:46)
[2020-08-01] MEDS: hydroCHLOROthiazide 25 mg Tablet 12.5 MG PO (08:47)
--- NOTE | 2020-08-01 09:52 | PM.PN ---
Subjective Subjective: Interval history: No chest pains, She had cath yesterday via right femoral access. Medications: Reviewed: Yes Medication Review Details: Current Medications Acetaminophen (Acetaminophen 325 Mg Tablet) 650 mg PO Q6H PRN PRN Reason: MILD PAIN Al Hydrox/Mg Hydrox/Simethicone (Uagn-Aas-Myyfzniwj-Marybeth 30 Ml Udc) 30 ml PO Q15M PRN PRN Reason: INDIGESTION Alprazolam (Alprazolam 0.25 Mg Tablet) 0.25 mg PO TID PRN PRN Reason: ANXIETY Aspirin (Aspirin 81 Mg Ec Tablet) 81 mg PO DAILY [facility] Last Admin: 08/01/20 08:46 Dose: 81 mg Documented by: Atorvastatin Calcium (Atorvastatin 40 Mg Tablet) 20 mg PO DAILY@2100 [facility] Last Admin: 07/31/20 21:17 Dose: Not Given Documented by: Atropine Sulfate (Atropine 1 Mg/Ml Sdv 1 Ml) 0.5 mg IVP PRN PRN PRN Reason: Symptomatic bradycardia Ezetimibe (Ezetimibe 10 Mg Tablet) 10 mg PO DAILY [facility] Last Admin: 08/01/20 08:46 Dose: 10 mg Documented by: Enoxaparin Sodium (Enoxaparin 40 Mg/0.4 Ml Syringe) 40 mg SUBCUT Q24H [facility] Last Admin: 07/31/20 03:10 Dose: 40 mg Documented by: Escitalopram Oxalate (Escitalopram 10 Mg Tablet) 5 mg PO DAILY@08 [facility] Last Admin: 08/01/20 08:45 Dose: 5 mg Documented by: Gabapentin (Gabapentin 300 Mg Capsule) 300 mg PO 0800 [facility] Last Admin: 08/01/20 08:45 Dose: 300 mg Documented by: Gabapentin (Gabapentin 300 Mg Capsule) 600 mg PO 2100 [facility] Last Admin: 07/31/20 21:15 Dose: 600 mg Documented by: Hydrochlorothiazide (Hydrochlorothiazide 25 Mg Tablet) 12.5 mg PO TuTh [facility] Last Admin: 08/01/20 08:47 Dose: 12.5 mg Documented by: Isosorbide Mononitrate (Isosorbide Mononitrate Er 30 Mg Tablet) 30 mg PO DAILY [facility] Last Admin: 08/01/20 08:46 Dose: 30 mg Documented by: Levothyroxine Sodium (Levothyroxine 125 Mcg Tablet) 125 mcg PO DAILY@05 [facility] Last Admin: 08/01/20 04:25 Dose: 125 mcg Documented by: Lisinopril (Lisinopril 5 Mg Tablet) 5 mg PO DAILY [facility] Last Admin: 08/01/20 08:46 Dose: 5 mg Documented by: Magnesium Hydroxide (Magnesium Hydroxide 30 Ml Udc) 30 ml PO DAILY PRN PRN Reason: CONSTIPATION Metoprolol Succinate (Metoprolol Succinate Er (24 Hr) 25 Mg Tablet) 25 mg PO DAILY@2100 [facility] Last Admin: 07/31/20 21:15 Dose: 25 mg Documented by: Naloxone HCl (Naloxone 0.4 Mg/Ml Sdv) 0.1 mg IVP Q2M PRN PRN Reason: RESPIRATORY RATE < 8/MIN Nitroglycerin (Nitroglycerin 0.4 Mg Sublingual Tablet) 0.4 mg SUBLINGUAL Q5M PRN PRN Reason: CHEST PAIN Nitroglycerin (Nitroglycerin 0.4 Mg Sublingual Tablet) 0.4 mg SUBLINGUAL Q5M PRN PRN Reason: CHEST PAIN Ondansetron HCl (Ondansetron 2 Mg/Ml Sdv 2 Ml) 4 mg IVP Q8H PRN PRN Reason: vomiting, or N/V if npo Pantoprazole Sodium (Pantoprazole Dr 40 Mg Tablet) 40 mg PO DAILY [facility] Last Admin: 08/01/20 08:46 Dose: 40 mg Documented by: Pantoprazole Sodium (Pantoprazole Dr 40 Mg Tablet) 40 mg PO DAILY@08 [facility] Last Admin: 08/01/20 07:56 Dose: Not Given Documented by: Temazepam (Temazepam 15 Mg Capsule) 15 mg PO BEDTIME PRN PRN Reason: INSOMNIA Tramadol HCl (Tramadol 50 Mg Tablet) 50 mg PO TID PRN PRN Reason: Pain Last Admin: 07/31/20 21:23 Dose: 50 mg Documented by: Vitamin D (Cholecalciferol (Vitamin D3) 1,000 Unit Tablet) 4,000 unit PO DAILY [facility] Last Admin: 07/31/20 07:56 Dose: 4,000 unit Documented by: Vitals/I&O/Wt Last Vital Signs Temp 98.3 F 08/01/20 04:00 Pulse 61 08/01/20 06:00 Resp 10 L 08/01/20 04:00 BP 115/57 08/01/20 04:00 Pulse Ox 94 08/01/20 04:00 0208/01/20 08/01/20 22:59 06:59 14:59 Intake Total 1300 / 1540 390 / 1930 Output Total 650 / 650 Balance 650 / 890 390 / 1280 Weight last 48 hrs Weight 260 lb Weight 260 lb Physical Exam Narrative: EXAM NARRATIVE: Gen: obese woman lying in bed, NAD HEENT: PEERL, No pallor or icterus, No lymphadenopathy CVS: S1, S2, No murnur, rub or gallop appreciated. 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 warm extremities.Right radial and right femoral access site no significant bruising or hematoma. Skin: No rashes or wounds noted. Psych: Normal mood and appropriate affect Data : 08/01/20 04:48 08/01/20 04:48 A&P Assessment and plan (1) Chest pain: Mildly abnormal stress test with chest pains inspite of maximal tolerated antianginal medical therapy. -She underwent LHC with Dr. Yadav. -Patent mid to distal LAD stent. -I appreciate Dr. Yadav's help in patient management. Status: Acute Qualifiers: Chest pain type: unspecified Qualified Code(s): R07.9 - Chest pain, unspecified (2) Coronary artery disease: -continue ASA, statin, metoprolol. decrease lisinopril to 5 mg daily and change HCTZ to 12.5 daily. -BP/HR log x 2 weeks -F/U in 1 week in [facility]; May add Ranexa at that time if symptoms of chest pain recur. Status: Acute (3) HTN (hypertension): well controlled. Status: Acute Qualifiers: Hypertension type: essential hypertension Qualified Code(s): I10 - Essential (primary) hypertension (4) Dyslipidemia: Status: Acute (5) History of CVA (cerebrovascular accident): Status: Acute (6) Morbid obesity with BMI of 40.0-44.9, adult: Status: Acute Attestations Medical Necessity Statement*: stable to be discharged home Time Spent in Patient Care: Greater than 35 minutes (>than 50% of time spent in counselling and/or direct pt care on unit). 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
--- NOTE | 2020-08-01 10:31 | P.DS_ITS ---
Discharge Providers Date of Admission: 07/31/20 00:33 Date of Discharge: August 01, 2020 Attending Provider at Admission: Monico Rodriguez Attending Provider at Discharge: Toni Garcia MD Primary Care Provider: Unique Woods Diagnoses at Discharge Discharge Diagnosis (1) Chest pain: Status: Resolved Permanent problem details: Atypical chest pain Qualifiers: Chest pain type: unspecified Qualified Code(s): R07.9 - Chest pain, unspecified (2) Coronary artery disease: Status: Chronic (3) HTN (hypertension): Status: Chronic Qualifiers: Hypertension type: essential hypertension Qualified Code(s): I10 - Essential (primary) hypertension (4) Dyslipidemia: Status: Chronic (5) History of CVA (cerebrovascular accident): Status: Chronic (6) Morbid obesity with BMI of 40.0-44.9, adult: Status: Acute Reason for Visit Reason for Visit: CP, DIZZINESS, NAUSEA, H/A Hospital Course Hospital Course 55 year old female with past medical history of hypertension, dyslipidemia, ANTONIA on CPAP, borderline DM, obesity, GERD, history of CVA with residual mild right sided weakness in 2015, coronary artery disease with stent to mid LAD and Resolute KADE 2.25 x 15 mm in May 2017 (for persistent chest pain and shortness of breath in spite of normal stress test), hypothyroidism, osteoarthritis and depression. She was previously on aspirin and Effient and stopped Effient sometime back.Patient had recent stress test due to worsening chest pain and shortness of breath. Myocardial perfusion imaging revealed a small area of slightly decreased tracer uptake in the inferior and inferolateral region, with a subtle area of reversibility.She was started on Isosorbide 15 mg daily by her customer operations intern as outpatient with some relief of symptoms.Prior to her admission day she called her customer operations intern with complain of chest pains which has worsened again and it was decided to increase imdur to 30 mg daily until her follow up but she ended up in hospital as her chest pain was more intense and lasted longer.During the hospital stay she was worked up for typical cardiac chest pain, she underwent CAG on 07/31/2020:Which showed patent Mid to distal LAD Stent along with no other significant abnormalities. She was continued on ASA, statin, metoprolol. decrease lisinopril to 5 mg daily and change HCTZ to 12.5 daily. She will follow up with her customer operations intern as outpatient in a week time for further course of action. Patient was discharged in stable condition to home. Physical Exam Const: COMMON NORMALS: patient oriented x3 HENMT: COMMON NORMALS: normocephalic and atraumatic HEAD & SCALP: no rmocephalic and atraumatic Chest: CHEST: Yes Symmetrical chest wall rise Resp: COMMON NORMALS: normal respiratory effort, No retractions, No use of accessory muscles and clear to auscultation bilaterally EFFORT & INSPECTION: Yes symmetric chest movement AUSCULTATION: clear to auscultation bilaterally Cardio: COMMON NORMALS: regular rate, regular rhythm, S1 normal heart sound present, S2 normal heart sound present, No gallops present (Cardio), No murmurs present (Cardio), No rub (Cardio) and Peripheral pulses 2+ throughout RATE: regular rate RHYTHM: regular rhythm HEART SOUNDS: S1 normal heart sound present and S2 normal heart sound present PERIPHERAL PULSES: Peripheral pulses 2+ throughout GI: COMMON NORMALS: Normal to inspection, nondistended, normoactive bowel s ounds present, Soft to palpation, non-tender, No hepatosplenomegaly present and no masses AUSCULTATION: Yes normoactive bowel sounds PALPATION: Yes Soft to palpation and Yes No hepatosplenomegaly present RECTAL EXAM: deferred Extremity: COMMON NORMALS: no clubbing, cyanosis or edema and no pedal edema Neuro: COMMON NORMALS: patient oriented x3 Discharge Data Data Completed and Pending: Completed Studies During Hospitalization Category Date Time Status XR chest 1V aman ble [id number] Stat Exams 07/30/20 21:53 Completed Pending at discharge Category Date Time Status 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 Routin e Exams 07/31/20 09:50 Taken Labs from last 24 hours 08/01/20 08/01/20 08/01/20 04:48 04:48 04:48 WBC RBC Hgb Hct MCV MCH MCHC RDW Plt Count MPV Neut % (Auto) Lymph % (Auto) Ellis % (Auto) Eos % (Auto) Baso % (Auto) Neut # (Auto) Lymph # (Auto) Ellis # (Auto) Eos # (Auto) Baso # (Auto) Nucleated RBC % (a uto) Nucleated RBCs # PT 13.90 INR 1.03 Sodium 137 Potassium 4.1 Chloride 102 Carbon Dioxide 29 Anion Gap 10.1 BUN 15 Creatinine 0.8 GFR Calculation 73.9 L Glucose 96 Calculated Osmolal ity 285 Calcium 9.3 Phosphorus 4.2 Magnesium 1.9 Triglycerides 178 H Cholesterol 154 LDL Cholesterol, C alc 74 HDL Cholesterol 44 L LDL/HDL Ratio 1.68 Cholesterol/HDL Ra loy 3.50 08/01/20 04:48 WBC 6.9 RBC 4.23 Hgb 11.9 Hct 38.4 MCV 90.8 MCH 28.1 MCHC 31.0 RDW 14.6 Plt Count 226 MPV 10.3 Neut % (Auto) 48.3 Lymph % (Auto) 35.8 Ellis % (Auto) 11.5 Eos % (Auto) 3.6 Baso % (Auto) 0.4 Neut # (Auto) 3.32 Lymph # (Auto) 2.5 Ellis # (Auto) 0.8 Eos # (Auto) 0.3 Baso # (Auto) 0.0 Nucleated RBC % (a uto) 0 Nucleated RBCs # 0.0 PT INR Sodium Potassium Chloride Carbon Dioxide Anion Gap BUN Creatinine GFR Calculation Glucose Calculated Osmolal ity Calcium Phosphorus Magnesium Triglycerides Cholesterol LDL Cholesterol, C alc HDL Cholesterol LDL/HDL Ratio Cholesterol/HDL Ra loy Vitals: Last Vital Signs Temp 98.3 F 08/01/20 04:00 Pulse 61 08/01/20 06:00 Resp 10 L 08/01/20 04:00 BP 115/57 08/01/20 04:00 Pulse Ox 94 08/01/20 04:00 Discharge Plan Discharge Patient Disposition: Home Condition: Stable Prescriptions: New lisinopril 5 mg tablet 5 mg PO DAILY Qty: 30 RF: 0 Continued escitalopram oxalate 5 mg tablet 5 mg PO DAILY@08 RF: 0 gabapentin 300 mg capsule See Rx Instructions .ROUTE .COMPLEX RF: 0 metoprolol succinate 25 mg tablet extended release 24 hr 25 mg PO DAILY@2099 RF: 0 naproxen 500 mg tablet 500 mg PO BID PRN (Reason: Pain) RF: 0 levothyroxine 125 mcg tablet 125 mcg PO DAILY@ RF: 0 tramadol 50 mg tablet 50 mg PO TID PRN (Reason: Pain) RF: 0 lovastatin 20 mg tablet 20 mg PO DAILY@2099 RF: 0 aspirin 81 mg tablet,delayed release (DR/EC) 81 mg PO DAILY@08 RF: 0 cholecalciferol (vitamin D3) 4,000 unit capsule 4,000 unit PO DAILY@08 RF: 0 magnesium oxide 500 mg capsule 500 mg PO DAILY@08 RF: 0 loratadine 10 mg capsule 10 mg PO DAILY@08 RF: 0 ferrous gluconate 325 mg (36 mg iron) tablet See Rx Instructions .ROUTE .COMPLEX RF: 0 nitroglycerin 0.4 mg tablet, sublingual 0.4 mg SUBLINGUAL Q5M PRN (Reason: Chest Pain) RF: 0 meclizine 25 mg tablet 25 mg PO DAILY PRN (Reason: Dizziness) RF: 0 ezetimibe 10 mg tablet 10 mg PO DAILY Qty: 90 RF: 3 hydrochlorothiazide 12.5 mg tablet 12.5 mg PO DAILY Qty: 30 RF: 3 isosorbide mononitrate 30 mg tablet extended release 24 hr 30 mg PO DAILY Qty: 90 RF: 3 potassium 99 mg Tablet See Rx Instructions .ROUTE .COMPLEX RF: 0 omeprazole 20 mg Tablet,Delayed Release (Dr/Ec) 20 mg PO DAILY@08 RF: 0 baclofen 5 mg tablet 5 mg PO DAILY@2100 RF: 0 Discontinued lisinopril 10 mg tablet See Rx Instructions .ROUTE .COMPLEX RF: 0 No Action (DME) COURTNEY FERNANDEZ See Rx Instructions .ROUTE .MEDSUPPLY Qty: 1 RF: 0 Discharge Orders: Discharge Order (Routine); Ordered 08/01/20 Ordered By: Toni Garcia Referrals: Unique Woods [Referring] - 08/05/20 10:20 am (You have a hospital followup with LOY Schmitz at [facility] on August 05 at 10:20am) Karen Cutler MD [Physician] - 08/29/20 2:15 pm (You have a cardiology followup with Dr. Cutler at [facility] on August 29 at 2:15pm) Discharge Diet: Low Salt Discharge Activity: Resume usual activity Patient Instructions: Left Heart Catheterization (DC), Chest Pain Stoplight, Post Angiogram Home Care Instructions Discharge Attestations Time Spent in Discharge Care*: greater than 30 min Specific Discharge Activities: educating patient, educating and/or supporting family/caregiver, discussing with pcp/other providers, discussing with behavioral health case manager/social workers/dc planners, documenting/other paperwork and evaluating patient/reviewing data Status at Discharge: Cognitive status at discharge: cognitively intact , Behavioral status at discharge: cooperative , Functional status at discharge: independent ambulation Overall status at discharge: patient is back to baseline Quality Metrics Clinical Quality Measures During this hospital stay, did patient experience: None Coding Level of Care Code Acute 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
[2020-08-01 11:05] VITALS: BP 140/86; PULSE 64; RESP 12
--- NOTE | 2020-08-01 13:10 | PC.NURSE ---
patient discharged home self care patient provided with discharge instructions as well as follow up appointments patient verbalized understanding of instructions patient ambulated to private vehicle accompanied by staff all belongings and discharge instructions with spouse patient alert oriented and instable condition.
== END 2020-08-01 13:00 | disposition home or self-care (01) ==
LOC: ER 07-31 00:12 → MEDSURG 07-31 00:55 → CSU 07-31 11:14
PROVIDERS: Internal Medicine; Admitting Provider Internal Medicine; Emergency Provider Emergency Medicine; PCP Nurse Practitioner Family; Visit Provider Internal Medicine
DX: I25.110 Atherosclerotic heart disease of native coronary artery with unstable angina pectoris (principal); I25.10 Atherosclerotic heart disease of native coronary artery without angina pectoris; I10 Essential (primary) hypertension; E78.5 Hyperlipidemia, unspecified; I69.851 Hemiplegia and hemiparesis following other cerebrovascular disease affecting right dominant side; E66.01 Morbid (severe) obesity due to excess calories; Z68.41 Body mass index [BMI] 40.0-44.9, adult; G47.33 Obstructive sleep apnea (adult) (pediatric); R73.03 Prediabetes; Z95.5 Presence of coronary angioplasty implant and graft; E03.9 Hypothyroidism, unspecified; M19.90 Unspecified osteoarthritis, unspecified site; Z79.82 Long term (current) use of aspirin
CPT/HCPCS: 12345; 36415; 71045; 80048; 80053; 80061; 83735; 83880; 84100; 84484; 85025; 85610; 93005; 93452; 96360; 96361; 96372; 99282; 99285; C1760; C1769; C1887; C1894; G0378; J1644; J1650; J2250; J3010; J3490; J7030; Q9967

== ENCOUNTER → 2020-08-09 12:01 | Outpatient (BNVA) | payer OTHER, SELFPAY | PROVIDERS: PCP Nurse Practitioner Family; Visit Provider Internal Medicine Cardiovascular Disease | DX: Z98.890 Other specified postprocedural states (principal) | CPT/HCPCS: 80048 ==